=== PATIENT | female | born 1965 | race Caucasian/White ===

== ENCOUNTER 2022-08-08 23:06 | Emergency (ER) | payer MEDICAID, OTHER ==
[~2022-08-08] VITALS: Ht 170.2 cm; Wt 72.6 kg
--- NOTE | 2022-08-08 23:15 | NUR ---
BIBFAMILY C/O NASAL CONGESTION STARTED TODAY. PATIENT IS AAOX4. -CP, -SOB. NOT IN CP DISTRESS. HAS ELECTRICIAN REFINERY AT BEDSIDE. PLACED COMFORTABLY IN BED. VITALS CHECKED.
--- NOTE | 2022-08-08 23:33 | NUR ---
CARGO BRACER AT BEDSIDE
[2022-08-08 23:37] VITALS: BP 123/64
--- NOTE | 2022-08-09 00:56 | NUR ---
Patient discharged to home in stable condition. Written and verbal after care instructions given. Patient verbalizes understanding of instruction.
== END 2022-08-09 00:57 | disposition home or self-care (01) ==
LOC: ER 23:10
DX: B34.9 Viral infection, unspecified (principal); R09.81 Nasal congestion
CPT/HCPCS: 71045-TC

== ENCOUNTER 2023-11-03 17:29 | Emergency (ER) | payer MEDICAID, OTHER ==
[~2023-11-03] VITALS: Ht 165.1 cm; Wt 70.3 kg
[2023-11-03 17:48] VITALS: BP 103/54; TEMP 98.2; O2SAT 100
[2023-11-03] MEDS ORDERED: ACETAMINOPHEN ES 500 MG TABLET ONE (18:21)
[2023-11-03] MEDS ORDERED: ACETAMINOPHEN ES 500 MG TABLET PO ONE (18:30)
[2023-11-03] MEDS ORDERED: IBUP-1955 PO (19:54)
== END 2023-11-03 20:34 | disposition home or self-care (01) ==
LOC: ER 17:29 → EDBD 17:29 → ER 20:34
DX: S20.212A Contusion of left front wall of thorax, initial encounter (principal); Z79.899 Other long term (current) drug therapy; Y04.2XXA Assault by strike against or bumped into by another person, initial encounter; Y93.89 Activity, other specified; Y92.89 Other specified places as the place of occurrence of the external cause; Y99.8 Other external cause status
CPT/HCPCS: 71100-TC

== ENCOUNTER 2023-12-05 23:56 | Emergency (ER) | payer OTHER ==
[~2023-12-05] VITALS: Ht 166.4 cm; Wt 69.4 kg
[~2023-12-05 23:56] MED LIST: IBUP-1955 PO
[2023-12-06] MEDS ORDERED: IBUPROFEN 400 MG TABLET ONE (00:39)
[2023-12-06] MEDS ORDERED: ONDANSETRON 4 MG TAB.RAPDIS ONE (00:39)
[2023-12-06] MEDS ORDERED: IBUPROFEN 400 MG TABLET PO ONE (01:00)
[2023-12-06] MEDS ORDERED: ONDANSETRON 4 MG TAB.RAPDIS SL ONE (01:00)
[2023-12-06 01:33] VITALS: BP 101/59; TEMP 97.6; O2SAT 97
== END 2023-12-06 01:33 | disposition home or self-care (01) ==
LOC: ER 23:57
DX: S09.8XXA Other specified injuries of head, initial encounter (principal); F41.9 Anxiety disorder, unspecified; Z98.890 Other specified postprocedural states; Z79.899 Other long term (current) drug therapy; V89.2XXA Person injured in unspecified motor-vehicle accident, traffic, initial encounter; Y93.89 Activity, other specified; Y92.89 Other specified places as the place of occurrence of the external cause; Y99.8 Other external cause status
CPT/HCPCS: 99284; 70450; Q0162